=== PATIENT | male | born 1995 | race Caucasian/White ===

== ENCOUNTER 2019-07-20 09:38 | Inpatient (IN) | payer OTHER ==
[2019-07-20 09:56] VITALS: BMI 18.4
--- NOTE | 2019-07-20 10:17 | HP ---
COWS - Scale Resting Pulse: 0= [place] 80 or Below Sweatin= Chills/Flushing Restless Observation: 3= Extraneous Movement Pupil Size: 1= Pupils >than Normal Bone or Joint Aches: 2= Severe Diffuse Aches Runny Nose/ Eye Tearin= Runny Nose/Eyes GI Upset > 30mins: 2= Nausea/Diarrhea Tremor Observation: 2= Slight Tremor Visible Yawning Observation: 1= 1-2x During Session Anxiety or Irritability: 2=Irritable/Anxious Goose Flesh Skin: 0=Smooth Skin COWS Score: 16 CIWA Score - Admission Criteria OASAS Guidelines: Admission for Medically Managed Detox: Requires at least one of the followin. CIWA greater than 12 2. Seizures within the past 24 hours 3. Delirium tremens within the past 24 hours 4. Hallucinations within the past 24 hours 5. Acute intervention needed for co occurring medical disorder 6. Acute intervention needed for co occurring psychiatric disorder 7. Severe withdrawal that cannot be handled at a lower level of care (continued vomiting, continued diarrhea, abnormal vital signs) requiring intravenous medication and/or fluids 8. Admitting History and Physical - Admission Chief Complaint: i need help to stop using heroin,cocaine,k2 History Source: Patient Limitations to Obtaining History: No Limitations - Smoking History Smoking history: Never smoked - Alcohol/Substance Use Hx Alcohol Use: No History of Substance Use: reports: Cocaine, Heroin - Social History Occupation: unemployed History of Recent Travel: No Other Social History: homeless,unemployed, Admission ROS [facility] Chief Complaint: i need help to stop using heroin,cocaine,k2 Allergies/Adverse Reactions: Allergies Allergy/AdvReac Type Severity Reaction Status Date / Time No Known Allergies Allergy Verified 07/20/19 09:47 History of Present Illness: this 23 years old male with heroin,cocaine and k2 dependence,seeking detox,seen in [place] last night, poor hygiene,homeless last detox 2017 [facility] unemployed weight loss anxiety,depression no significant period of sobriety - Ebola screening Have you traveled outside of the country in the last 21 days: No Have you had contact with anyone from an Ebola affected area: No Do you have a fever: No - Review of Systems Constitutional: Chills, Loss of Appetite, Night Sweats, Weakness, Unintentional Wgt. Loss EENT: reports: Hearing Loss, Nose Congestion Respiratory: reports: No Symptoms reported Cardiac: reports: No Symptoms Reported GI: reports: Diarrhea, Nausea, Poor Appetite, Indigestion : reports: No Symptoms Reported Musculoskeletal: reports: Back Pain, Joint Pain, Muscle Pain Integumentary: reports: Dryness Neuro: reports: Headache, Tremors Endocrine: reports: No Symptoms Reported Hematology: reports: No Symptoms Reported Psychiatric: reports: No Sypmtoms Reported, Judgement Intact, Mood/Affect Appropiate, Orientated x3, Anxious, Depressed Other Systems: Reviewed and Negative Patient History - Patient Medical History Hx Anemia: No Hx Asthma: No Hx Chronic Obstructive Pulmonary Disease (COPD): No Hx Cancer: No Hx Cardiac Disorders: No Hx Congestive Heart Failure: No Hx Hypertension: No Hx Hypercholesterolemia: No Hx Pacemaker: No HX Cerebrovascular Accident: No Hx Seizures: No Hx Dementia: No Hx Diabetes: No Hx Gastrointestinal Disorders: No Hx Liver Disease: No Hx Genitourinary Disorders: No Hx Sexually Transmitted Disorders: No Hx Renal Disease (ESRD): No Hx Thyroid Disease: No Hx Human Immunodeficiency Virus (HIV): No (2019 negative) Hx Hepatitis C: Yes (not treated) Hx Depression: Yes (anxiety,no med) Hx Suicide Attempt: No Hx Bipolar Disorder: No Hx Schizophrenia: No Other Medical History: no suicidal,no homicidal - Patient Surgical History Past Surgical History: No - PPD History Previous Implant?: Yes Documented Results: Negative w/o proof Implanted On Prior [facility] Admission?: No PPD to be Administered?: Yes - Smoking Cessation Smoking history: Never smoked - Substance & Tx. History Hx Alcohol Use: No Hx Substance Use: Yes Substance Use Type: Cocaine, Heroin Hx Substance Use Treatment: Yes (2016 [facility]) - Substances abused K2/Spice Substance route: Smoking Frequency: Daily Amount used: $10 Age of first use: 13 Date of last use: 07/18/19 Cocaine Substance route: Injection Frequency: Daily Amount used: 3 bundles Age of first use: 20 Date of last use: 07/18/19 Heroin Substance route: Injection Frequency: Daily Amount used: 3 bundles Age of first use: 20 Date of last use: 07/18/19 Admission Physical Exam BHS - Vital Signs Vital Signs: Vital Signs - 24 hr 07/20/19 09:47 Temperature 99.0 F Pulse Rate 57 L Respiratory 18 Rate Blood Pressure 138/94 - Physical General Appearance: Yes: Moderate Distress, Tremorous, Irritable, Sweating, Anxious HEENTM: Yes: Normal ENT Inspection, JESSICA, Pharynx Normal Respiratory: Yes: Lungs Clear, Normal Breath Sounds, No Respiratory Distress Neck: Yes: Within Normal Limits, Supple, Trachea in good position Breast: Yes: Within Normal Limits Cardiology: Yes: Within Normal Limits, Regular Rhythm, Regular Rate, S1, S2 Abdominal: Yes: Flat, Soft, Pulsatile Mass Genitourinary: Yes: Within Normal Limits Back: Yes: Muscle Spasm Musculoskeletal: Yes: full range of Motion, Back pain, Muscle Pain Extremities: Yes: Tremors 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 Level of Care: Medically Managed Detox Regimen/Protocol: Methadone Inpatient Rehab Admission - Rehab Decision to Admit Inpatient rehab admission?: No
[2019-07-20] MEDS ORDERED: MENTHOL/PHENOL 1 EACH UD MM PRN (10:31)
[2019-07-20] MEDS ORDERED: MAGNESIUM CITRATE 300 ML BOTTLE PO PRN (10:31)
[2019-07-20] MEDS ORDERED: MAG HYDROX/AL HYDROX/SIMETH 30 ML UNIT-DOSE CUP PO PRN (10:31)
[2019-07-20] MEDS ORDERED: MAGNESIUM HYDROX 2400MG/30ML ORAL SUSPENSION 30 ML CUP PO PRN (10:31)
[2019-07-20] MEDS ORDERED: ACETAMINOPHEN 325 MG TABLET (FP) PO PRN ×2 (10:31)
[2019-07-20] MEDS ORDERED: BISMUTH SUBSALICYLATE 262 MG/15 ML BTL PO PRN (10:31)
[2019-07-20] MEDS ORDERED: IBUPROFEN 400 MG TABLET (FP) PO PRN (10:31)
[2019-07-20] MEDS ORDERED: PERMETHRIN 5% TOPICAL CREAM 60 GM TUBE TP ONE (10:43)
[2019-07-20] MEDS ORDERED: METHADONE HCL 10 MG TABLET (FOR DETOX USE ONLY) PO ONE (11:10)
[2019-07-20] MEDS: ONDANSETRON *ODT* 4 MG TABLET SL PRN ×2 (13:04→21:45)
[2019-07-20] MEDS: THIAMINE HCL 100 MG TABLET (FP) PO SCH (21:43)
[2019-07-20] MEDS: cloNIDine HCL 0.1 MG TABLET PO PRN (21:45)
[2019-07-20] MEDS: diazePAM 5 MG TABLET PO PRN (22:46)
[2019-07-20] MEDS: MELATONIN 5 MG TABLETS PO PRN (22:47)
[2019-07-21] MEDS: ONDANSETRON *ODT* 4 MG TABLET SL PRN ×2 (06:34→20:12)
[2019-07-21] MEDS: TRIMETHOBENZAMIDE HCL 200MG/2ML INJ IM PRN (09:29)
[2019-07-21] MEDS ORDERED: METHADONE (DETOX) 20 MG, METHADONE (DETOX) 5 MG PO ONE (10:00)
[2019-07-21] MEDS: PRENATAL VITAMINS W/ FOLIC ACID TABLET (FP) PO SCH (10:57)
[2019-07-21] MEDS ORDERED: METHADONE HCL 5 MG TABLET (FOR DETOX USE ONLY) ONE (10:58)
[2019-07-21] MEDS ORDERED: METHADONE HCL 10 MG TABLET (FOR DETOX USE ONLY) ONE (10:58)
--- NOTE | 2019-07-21 14:36 | PN ---
BHS COWS - Scale Resting Pulse: 1= [place] 81-100 Sweatin= Chills/Flushing Restless Observation: 1= Difficult to Sit Still Pupil Size: 1= Pupils >than Normal Bone or Joint Aches: 1= Mild Discomfort Runny Nose/ Eye Tearin= Nasal Congestion GI Upset > 30mins: 3= Vomiting/Diarrhea Tremor Observation of Outstretched Hands: 1= Tremor [place], Not Seen Yawning Observation: 1= 1-2x During Session Anxiety or Irritability: 2=Irritable/Anxious Goose Flesh Skin: 0=Smooth Skin COWS Score: 13 BHS Progress Note (SOAP) Subjective: pt in isolation due to lice- pt has had several treatments. Pt has been homeless and sleeps . 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 O: Vital Signs - 24 hr 07/20/19 07/21/19 07/21/19 21:37 00:30 03:30 Temperature 96.1 F L Pulse Rate 55 L Respiratory 18 16 18 Rate Blood Pressure 142/68 07/21/19 07/21/19 06:00 09:52 Temperature 98.6 F 98.2 F Pulse Rate 50 L 45 L Respiratory 18 16 Rate Blood Pressure 130/63 142/86 a/p: heroin,cocaine and k2 dependence: OUD: methadone detox protocol Lice: pt was allowed to cut hair/baltazar, treatment pt was given a contract to stay in room- but pt feeling bored. pt is german speaker and did not want any cambodian books
[2019-07-21] MEDS: diazePAM 5 MG TABLET PO PRN (18:22)
[2019-07-21] MEDS: MELATONIN 5 MG TABLETS PO PRN (22:15)
[2019-07-21] MEDS: cloNIDine HCL 0.1 MG TABLET PO PRN (22:15)
[2019-07-21] MEDS: METHOCARBAMOL 500 MG TABLET PO PRN (22:15)
[2019-07-21] MEDS: THIAMINE HCL 100 MG TABLET (FP) PO SCH (22:15)
[2019-07-22] MEDS: TRIMETHOBENZAMIDE HCL 200MG/2ML INJ IM PRN (09:36)
[2019-07-22] MEDS ORDERED: METHADONE HCL 10 MG TABLET (FOR DETOX USE ONLY) PO ONE (10:00)
[2019-07-22] MEDS: hydrOXYzine PAMOATE 25 MG CAPSULE (FP) PO PRN ×3 (10:32→22:17)
[2019-07-22] MEDS: PRENATAL VITAMINS W/ FOLIC ACID TABLET (FP) PO SCH (10:32)
--- NOTE | 2019-07-22 13:07 | PN ---
BHS COWS - Scale Resting Pulse: 0= [place] 80 or Below Sweatin= Chills/Flushing Restless Observation: 1= Difficult to Sit Still Pupil Size: 0= Normal to Room Light Bone or Joint Aches: 2= Severe Diffuse Aches Runny Nose/ Eye Tearin= Nasal Congestion GI Upset > 30mins: 2= Nausea/Diarrhea Tremor Observation of Outstretched Hands: 1= Tremor [place], Not Seen Yawning Observation: 1= 1-2x During Session Anxiety or Irritability: 2=Irritable/Anxious Goose Flesh Skin: 3=Piloerection COWS Score: 14 S Progress Note (SOAP) Subjective: nasal congestions sweats shakes nausea interrupted sleep agitation restless Objective: 07/22/19 13:07 Vital Signs Temperature 98.1 F 07/22/19 09:56 Pulse Rate 64 07/22/19 09:56 Respiratory Rate 18 07/22/19 09:56 Blood Pressure 139/99 07/22/19 09:56 O2 Sat by Pulse Oximetry (%) labs ordered aaox3 ambulating no acute distress Assessment: 07/22/19 13:10 withdrawals Plan: continue detox tigan IM prn increase fluids labs ordered
[2019-07-22] MEDS: ONDANSETRON *ODT* 4 MG TABLET SL PRN (17:43)
[2019-07-22] MEDS: diazePAM 5 MG TABLET PO PRN ×2 (17:43→22:17)
[2019-07-22] MEDS: cloNIDine HCL 0.1 MG TABLET PO PRN (17:43)
[2019-07-22] MEDS: THIAMINE HCL 100 MG TABLET (FP) PO SCH (22:17)
[2019-07-22] MEDS: MELATONIN 5 MG TABLETS PO PRN (22:17)
[2019-07-22] MEDS: METHOCARBAMOL 500 MG TABLET PO PRN (22:18)
[2019-07-23] MEDS ORDERED: METHADONE HCL 10 MG TABLET (FOR DETOX USE ONLY) ONE (09:47)
[2019-07-23] MEDS ORDERED: METHADONE HCL 5 MG TABLET (FOR DETOX USE ONLY) ONE (09:47)
[2019-07-23] MEDS ORDERED: METHADONE (DETOX) 10 MG, METHADONE (DETOX) 5 MG PO ONE (10:00)
[2019-07-23 10:17] LABS: PH,URINE 5.5 (5.0-8.0); URINE APPEARANCE CLEAR; URINE BILIRUBIN NEGATIVE (NEGATIVE); URINE COLOR YELLOW; URINE GLUCOSE (UA) NEGATIVE (NEGATIVE); URINE KETONE NEGATIVE (NEGATIVE); URINE LEUK ESTERASE NEGATIVE (NEGATIVE); URINE NITRITE NEGATIVE (NEGATIVE); URINE PROTEIN NEGATIVE (NEGATIVE); URINE UROBILINOGEN 0.2 mg/dL (0.2-1.0)
[2019-07-23 10:17] LABS: BASO % 1.5 % (0-2.0); EOS % 8.5 % (0-4.5); HEMATOCRIT 48.8 % (35.4-49); LYMPH % 39.2 % (8-40); MCH 27.8 pg (25.7-33.7); MCHC 32.7 g/dl (32.0-35.9); MEAN CELL VOLUME 85.2 fl (80-96); MEAN PLT VOLUME 10.4 fl (7.5-11.1); MONO % 8.6 % (3.8-10.2); NEUT % 42.2 % (42.8-82.8); PLATELET COUNT 379 K/MM3 (134-434); RBC 5.73 M/mm3 (4.00-5.60); RDW 14.4 % (11.9-15.9); WHITE BLOOD COUNT 9.4 K/mm3 (4.0-10.0)
[2019-07-23 10:21] LABS: ALBUMIN 4.3 g/dl (3.4-5.0); BILIRUBIN,TOTAL 0.6 mg/dL (0.2-1); BLOOD UREA NITROGEN 14.9 mg/dL (7-18); CALCIUM 9.9 mg/dL (8.5-10.1); TOT PROT 7.9 g/dl (6.4-8.2)
[2019-07-23] MEDS: diazePAM 5 MG TABLET PO PRN (10:36)
[2019-07-23] MEDS: PRENATAL VITAMINS W/ FOLIC ACID TABLET (FP) PO SCH (10:36)
--- NOTE | 2019-07-23 10:36 | PN ---
BHS COWS - Scale Resting Pulse: 1= [place] 81-100 Sweatin= Chills/Flushing Restless Observation: 1= Difficult to Sit Still Pupil Size: 0= Normal to Room Light Bone or Joint Aches: 1= Mild Discomfort Runny Nose/ Eye Tearin= Nasal Congestion GI Upset > 30mins: 0= None Tremor Observation of Outstretched Hands: 1= Tremor [place], Not Seen Yawning Observation: 1= 1-2x During Session Anxiety or Irritability: 2=Irritable/Anxious Goose Flesh Skin: 0=Smooth Skin COWS Score: 9 BHS Progress Note (SOAP) Subjective: agitation restless sweats interrupted sleep Objective: 07/23/19 10:36 Vital Signs Temperature 97.5 F L 07/23/19 09:27 Pulse Rate 84 07/23/19 09:27 Respiratory Rate 18 07/23/19 09:27 Blood Pressure 133/81 07/23/19 09:27 O2 Sat by Pulse Oximetry (%) Laboratory Tests 07/23/19 07/23/19 07:30 07:50 Sodium 139 Potassium 5.0 Chloride 101 Carbon Dioxide 30 Anion Gap 7 L BUN 14.9 Creatinine 1.0 Est GFR (CKD-EPI)AfAm 120.70 Est GFR (CKD-EPI)NonAf 104.14 Random Glucose 122 H Calcium 9.9 Total Bilirubin 0.6 AST 23 ALT 19 Alkaline Phosphatase 110 Total Protein 7.9 Albumin 4.3 Urine Color Yellow Urine Appearance Clear Urine pH 5.5 Ur Specific [place] 1.032 Urine Protein Negative Urine Glucose (UA) Negative Urine Ketones Negative Urine Blood Negative Urine Nitrite Negative Urine Bilirubin Negative Urine Urobilinogen 0.2 Ur Leukocyte Esterase Negative labs noted aaox3 ambulating no acute distress Assessment: 07/23/19 10:36 withdrawals sx Plan: continue detox increase fluids
--- NOTE | 2019-07-23 12:02 | EKG ---
Test Reason : Blood Pressure : / mmHG Vent. Rate : 050 BPM Atrial Rate : 050 BPM P-R Int : 096 ms QRS Dur : 088 ms QT Int : 428 ms P-R-T Axes : 004 072 065 degrees QTc Int : 390 ms SINUS BRADYCARDIA WITH SHORT NE OTHERWISE NORMAL ECG NO PREVIOUS ECGS AVAILABLE Confirmed by ABDIEL BARRETO MD ([id number]) on 07/23/2019 12:02:07 PM Referred By: Confirmed By:ABDIEL BARRETO MD
[2019-07-23] MEDS: TOLNAFTATE 1% CREAM 15 GM TUBE TP SCH ×2 (15:06→22:09)
[2019-07-23] MEDS: hydrOXYzine PAMOATE 25 MG CAPSULE (FP) PO PRN ×2 (18:46→23:46)
[2019-07-23] MEDS: MELATONIN 5 MG TABLETS PO PRN (22:10)
[2019-07-23] MEDS: THIAMINE HCL 100 MG TABLET (FP) PO SCH (22:10)
[2019-07-23] MEDS: METHOCARBAMOL 500 MG TABLET PO PRN (22:10)
[2019-07-24] MEDS ORDERED: METHADONE HCL 10 MG TABLET (FOR DETOX USE ONLY) PO ONE (10:00)
[2019-07-24] MEDS: PRENATAL VITAMINS W/ FOLIC ACID TABLET (FP) PO SCH (10:43)
[2019-07-24] MEDS: TOLNAFTATE 1% CREAM 15 GM TUBE TP SCH ×2 (10:43→21:47)
[2019-07-24] MEDS: hydrOXYzine PAMOATE 25 MG CAPSULE (FP) PO PRN ×2 (10:45→22:21)
--- NOTE | 2019-07-24 10:50 | PN ---
S CIWA - CIWA Score Nausea/Vomitin-No Nausea/No Vomiting Muscle Tremors: 2 Anxiety: 1-Mildly Anxious Agitation: 1-Slight > Activity Paroxysmal Sweats: No Perspiration Orientation: 0-Oriented Tacttile Disturbances: 0-None Auditory Disturbances: 0-None Visual Disturbances: 0-None Headache: 0-None Present CIWA-Ar Total Score: 4 BHS COWS - Scale Resting Pulse: 0= ID 80 or Below Sweatin= Chills/Flushing Restless Observation: 1= Difficult to Sit Still Pupil Size: 0= Normal to Room Light Bone or Joint Aches: 1= Mild Discomfort Runny Nose/ Eye Tearin= None GI Upset > 30mins: 0= None Tremor Observation of Outstretched Hands: 1= Tremor [place], Not Seen Yawning Observation: 0= None Anxiety or Irritability: 1=Feels Anxious/Irritable Goose Flesh Skin: 0=Smooth Skin COWS Score: 5 S Progress Note (SOAP) Subjective: sweats little anxiety feeling better Objective: 07/24/19 10:55 Vital Signs Temperature 97.9 F 07/24/19 09:31 Pulse Rate 50 L 07/24/19 09:31 Respiratory Rate 20 07/24/19 09:31 Blood Pressure 139/87 07/24/19 09:31 O2 Sat by Pulse Oximetry (%) Laboratory Tests 07/23/19 07/23/19 07/23/19 07:30 07:30 07:50 WBC 9.4 RBC 5.73 H Hgb 16.0 Hct 48.8 MCV 85.2 MCH 27.8 MCHC 32.7 RDW 14.4 Plt Count 379 MPV 10.4 Absolute Neuts (auto) 4.0 Neutrophils % 42.2 L Lymphocytes % 39.2 Monocytes % 8.6 Eosinophils % 8.5 H Basophils % 1.5 Nucleated RBC % 0 Sodium 139 Potassium 5.0 Chloride 101 Carbon Dioxide 30 Anion Gap 7 L BUN 14.9 Creatinine 1.0 Est GFR (CKD-EPI)AfAm 120.70 Est GFR (CKD-EPI)NonAf 104.14 Random Glucose 122 H Calcium 9.9 Total Bilirubin 0.6 AST 23 ALT 19 Alkaline Phosphatase 110 Total Protein 7.9 Albumin 4.3 Urine Color Yellow Urine Appearance Clear Urine pH 5.5 Ur Specific [place] 1.032 Urine Protein Negative Urine Glucose (UA) Negative Urine Ketones Negative Urine Blood Negative Urine Nitrite Negative Urine Bilirubin Negative Urine Urobilinogen 0.2 Ur Leukocyte Esterase Negative aaox3 ambulating no acute distress Assessment: 07/24/19 10:55 mild withdrawals Plan: continue detox increase fluids d/c in am
[2019-07-24] MEDS: ONDANSETRON *ODT* 4 MG TABLET SL PRN ×2 (12:18→18:43)
[2019-07-24] MEDS: THIAMINE HCL 100 MG TABLET (FP) PO SCH (21:47)
[2019-07-24] MEDS: MELATONIN 5 MG TABLETS PO PRN (22:21)
[2019-07-24] MEDS: TRIMETHOBENZAMIDE HCL 200MG/2ML INJ IM PRN (22:57)
[2019-07-25] MEDS: METHOCARBAMOL 500 MG TABLET PO PRN (00:43)
[2019-07-25] MEDS ORDERED: METHADONE HCL 5 MG TABLET (FOR DETOX USE ONLY) PO ONE (06:00)
[2019-07-25] MEDS: ONDANSETRON *ODT* 4 MG TABLET SL PRN (06:13)
--- NOTE | 2019-07-25 08:58 | DS ---
[facility] Detox Discharge Summary Admission Date: 07/20/19 Discharge Date: 07/25/19 - History Present History: Cocaine Dependence, Opioid Dependence - Physical Exam Results Vital Signs: Vital Signs Temperature 98.1 F 07/25/19 07:00 Pulse Rate 57 L 07/25/19 07:00 Respiratory Rate 18 07/25/19 07:00 Blood Pressure 128/84 07/25/19 07:00 O2 Sat by Pulse Oximetry (%) Pertinent Admission Physical Exam Findings: pt arrived in withdrawals Vital Signs Temperature 98.1 F 07/25/19 07:00 Pulse Rate 57 L 07/25/19 07:00 Respiratory Rate 18 07/25/19 07:00 Blood Pressure 128/84 07/25/19 07:00 O2 Sat by Pulse Oximetry (%) Laboratory Tests 07/23/19 07/23/19 07/23/19 07:30 07:30 07:30 WBC 9.4 RBC 5.73 H Hgb 16.0 Hct 48.8 MCV 85.2 MCH 27.8 MCHC 32.7 RDW 14.4 Plt Count 379 MPV 10.4 Absolute Neuts (auto) 4.0 Neutrophils % 42.2 L Lymphocytes % 39.2 Monocytes % 8.6 Eosinophils % 8.5 H Basophils % 1.5 Nucleated RBC % 0 Sodium 139 Potassium 5.0 Chloride 101 Carbon Dioxide 30 Anion Gap 7 L BUN 14.9 Creatinine 1.0 Est GFR (CKD-EPI)AfAm 120.70 Est GFR (CKD-EPI)NonAf 104.14 Random Glucose 122 H Calcium 9.9 Total Bilirubin 0.6 AST 23 ALT 19 Alkaline Phosphatase 110 Total Protein 7.9 Albumin 4.3 Urine Color Urine Appearance Urine pH Ur Specific [place] Urine Protein Urine Glucose (UA) Urine Ketones Urine Blood Urine Nitrite Urine Bilirubin Urine Urobilinogen Ur Leukocyte Esterase RPR Titer Nonreactive 07/23/19 07:50 WBC RBC Hgb Hct MCV MCH MCHC RDW Plt Count MPV Absolute Neuts (auto) Neutrophils % Lymphocytes % Monocytes % Eosinophils % Basophils % Nucleated RBC % Sodium Potassium Chloride Carbon Dioxide Anion Gap BUN Creatinine Est GFR (CKD-EPI)AfAm Est GFR (CKD-EPI)NonAf Random Glucose Calcium Total Bilirubin AST ALT Alkaline Phosphatase Total Protein Albumin Urine Color Yellow Urine Appearance Clear Urine pH 5.5 Ur Specific [place] 1.032 Urine Protein Negative Urine Glucose (UA) Negative Urine Ketones Negative Urine Blood Negative Urine Nitrite Negative Urine Bilirubin Negative Urine Urobilinogen 0.2 Ur Leukocyte Esterase Negative RPR Titer today pt is aaox3 ambulating no acute distress no s/s of withdrawals - Treatment Hospital Course: Detox Protocol Followed, Detoxed Safely, Responded well, Discharged Condition Good, Rehab Referral Accepted Patient has Accepted a Rehab Referral to: pt referred to inpatient rehab; [facility] - Medication Discharge Medications: Ambulatory Orders NK [No Known Home Medication] 07/20/19 - Diagnosis (1) Anxiety and depression Current Visit: Yes Status: Acute (2) Cocaine dependence Current Visit: Yes Status: Chronic Qualifiers: Substance use status: uncomplicated Qualified Code(s): F14.20 - Cocaine dependence, uncomplicated (3) IVDU (intravenous drug user) Current Visit: Yes Status: Acute (4) Opioid dependence with withdrawal Current Visit: Yes Status: Chronic (5) Poor hygiene Current Visit: Yes Status: Acute (6) Weight loss Current Visit: Yes Status: Acute - AMA Did Patient Leave Against Medical Advice: No
[2019-07-25 09:23] VITALS: BP 120/79; PULSE 71; TEMP 98.2
[2019-07-25] MEDS: PRENATAL VITAMINS W/ FOLIC ACID TABLET (FP) PO SCH (10:42)
[2019-07-25] MEDS: TOLNAFTATE 1% CREAM 15 GM TUBE TP SCH (10:42)
[2019-07-25] MEDS: hydrOXYzine PAMOATE 25 MG CAPSULE (FP) PO PRN (10:43)
== END 2019-07-25 12:06 | disposition other institution (70) | DRG 773 ==
LOC: YASAS 09:38 → Y6N 10:11
PROVIDERS: ADMIT Allergy & Immunology; ATTEND Allergy & Immunology
PROC: HZ2ZZZZ Detoxification Services for Substance Abuse Treatment (ICD-10-PCS; principal; 2019-07-20)
DX: F11.23 Opioid dependence with withdrawal (principal); F14.20 Cocaine dependence, uncomplicated; F19.20 Other psychoactive substance dependence, uncomplicated; F41.8 Other specified anxiety disorders; F32.9 Major depressive disorder, single episode, unspecified; B18.2 Chronic viral hepatitis C; R46.0 Very low level of personal hygiene; B85.0 Pediculosis due to Pediculus humanus capitis; R63.4 Abnormal weight loss; Z68.1 Body mass index [BMI] 19.9 or less, adult; Z59.0 Homelessness
CPT/HCPCS: 36415; 80053; 81003; 85025; 86593; 93005; 93010; J0735; Q0162

== ENCOUNTER 2019-07-25 12:20 | Inpatient (IN) | payer OTHER ==
--- NOTE | 2019-07-25 10:47 | HP ---
[facility] Rehab Assess/Revision - Admission History Admitted to Rehab from: [facility] - Findings Detox History & Physical reviewed: Yes Concur with findings: Yes Inpatient Rehab Admission - Rehab Decision to Admit Inpatient rehab admission?: Yes - Initial Determination Are CD services needed?: Yes Free of communicable disease: Yes Not in need of hospitalization: Yes - Rehab Admission Criteria Previous failed treatment: Yes Poor recovery environment: Yes Comorbidities: Yes Lacks judgement: Yes Patient is meeting Inpatient Rehab admission criteria:: Yes
[~2019-07-25 12:20] MED LIST: ACETAMINOPHEN 325 MG TABLET (FP) PO PRN; IBUPROFEN 400 MG TABLET (FP) PO PRN; LOPERAMIDE HCL 2 MG CAPSULE PO PRN; MAGNESIUM CITRATE 300 ML BOTTLE PO PRN; MAGNESIUM HYDROX 2400MG/30ML ORAL SUSPENSION 30 ML CUP PO PRN; MENTHOL/PHENOL 1 EACH UD MM PRN; P-EPHED 60MG/TRIPROLIDI 2.5MG TABLET PO PRN; guaiFENesin 200 MG/10 ML 10 ML UNIT-DOSE CUPS PO PRN
[2019-07-25] MEDS: MAG HYDROX/AL HYDROX/SIMETH 30 ML UNIT-DOSE CUP PO PRN (12:44)
--- NOTE | 2019-07-25 15:28 | PN ---
BHS Progress Note Note: 23 y/o m pt with h/o opioid dep, chronic alcoholism and cocaine dep. admitted to [facility] after completing detox. Pt at present is stable in nad . Labs wnl except for random glucose 122. Plan rehab bgm x 2 days
[2019-07-25] MEDS: MELATONIN 5 MG TABLETS PO PRN (21:17)
[2019-07-25] MEDS: THIAMINE HCL 100 MG TABLET (FP) PO SCH (21:17)
[2019-07-25] MEDS: hydrOXYzine PAMOATE 50 MG CAPSULE (FP) PO PRN (21:18)
[2019-07-26] MEDS: hydrOXYzine PAMOATE 50 MG CAPSULE (FP) PO PRN ×2 (09:51→18:47)
[2019-07-26] MEDS: PRENATAL VITAMINS W/ FOLIC ACID TABLET (FP) PO SCH (09:51)
[2019-07-26] MEDS: NICOTINE 21 MG/24 HOURS TOPICAL PATCH TD SCH (09:52)
--- NOTE | 2019-07-26 10:55 | PN ---
BHS Progress Note Note: Pt here for f/u. D/w pt re MAT- methadone/suboxone treatment. Pt will discuss with counselor re MAT Pt wants regular diet and ensure
[2019-07-26] MEDS: ONDANSETRON *ODT* 4 MG TABLET SL PRN ×2 (13:04→18:45)
[2019-07-26] MEDS ORDERED: TRIMETHOBENZAMIDE HCL 200MG/2ML INJ IM PRN (14:25)
[2019-07-26] MEDS: THIAMINE HCL 100 MG TABLET (FP) PO SCH (22:38)
[2019-07-27] MEDS: hydrOXYzine PAMOATE 50 MG CAPSULE (FP) PO PRN (08:22)
[2019-07-27] MEDS: MAG HYDROX/AL HYDROX/SIMETH 30 ML UNIT-DOSE CUP PO PRN (08:22)
--- NOTE | 2019-07-27 09:38 | PN ---
S Progress Note Note: Patient seen for c/o chills, body aches, mild nausea-no vomiting this am and poor sleep. Vital Signs Temperature 97.5 F L 07/27/19 06:41 Pulse Rate 69 07/27/19 06:41 Respiratory Rate 16 07/27/19 06:41 Blood Pressure 148/100 07/27/19 06:41 O2 Sat by Pulse Oximetry (%) Laboratory Tests 07/26/19 07/27/19 06:46 06:20 POC Glucometer 82 88 PE: alert and oriented x 3 skin warm and dry +perrla, eoms intact bl lips dry, intact gi nt, nd ext full rom, amb ad lilly no tremors A/P nausea body aches insomnia continue zofran prn flexeril for body aches belsomra prn for insomnia monitor clinically patient agreed for connection to methadone program-to be arranged by counselor
[2019-07-27] MEDS: PRENATAL VITAMINS W/ FOLIC ACID TABLET (FP) PO SCH (09:46)
[2019-07-27] MEDS: NICOTINE 21 MG/24 HOURS TOPICAL PATCH TD SCH (09:46)
[2019-07-27] MEDS: NICOTINE POLACRILEX 4 MG GUM BUC PRN (09:47)
[2019-07-27] MEDS: ONDANSETRON *ODT* 4 MG TABLET SL PRN (12:22)
[2019-07-27] MEDS: CYCLOBENZAPRINE HCL 10 MG TABLET (FP) PO SCH ×2 (14:47→21:28)
[2019-07-27] MEDS: cloNIDine HCL 0.1 MG TABLET PO PRN ×2 (14:47→18:40)
[2019-07-27] MEDS: THIAMINE HCL 100 MG TABLET (FP) PO SCH (21:28)
[2019-07-27] MEDS: SUVOREXANT 10 MG TABLET PO PRN (21:29)
[2019-07-27] MEDS: MELATONIN 5 MG TABLETS PO PRN (21:30)
[2019-07-28] MEDS: CYCLOBENZAPRINE HCL 10 MG TABLET (FP) PO SCH ×3 (06:07→21:11)
[2019-07-28] MEDS: NICOTINE 21 MG/24 HOURS TOPICAL PATCH TD SCH (09:55)
[2019-07-28] MEDS: PRENATAL VITAMINS W/ FOLIC ACID TABLET (FP) PO SCH (09:55)
[2019-07-28] MEDS: cloNIDine HCL 0.1 MG TABLET PO PRN (09:55)
[2019-07-28] MEDS: MELATONIN 5 MG TABLETS PO PRN (21:12)
[2019-07-28] MEDS: THIAMINE HCL 100 MG TABLET (FP) PO SCH (21:12)
[2019-07-28] MEDS: NICOTINE POLACRILEX 4 MG GUM BUC PRN (21:22)
[2019-07-29] MEDS: CYCLOBENZAPRINE HCL 10 MG TABLET (FP) PO SCH ×3 (06:17→21:09)
[2019-07-29] MEDS: NICOTINE 21 MG/24 HOURS TOPICAL PATCH TD SCH (09:46)
[2019-07-29] MEDS: PRENATAL VITAMINS W/ FOLIC ACID TABLET (FP) PO SCH (09:47)
[2019-07-29] MEDS: NICOTINE POLACRILEX 4 MG GUM BUC PRN ×2 (09:47→21:08)
[2019-07-29] MEDS: cloNIDine HCL 0.1 MG TABLET PO PRN (09:47)
[2019-07-29] MEDS: THIAMINE HCL 100 MG TABLET (FP) PO SCH (21:06)
[2019-07-29] MEDS: SUVOREXANT 10 MG TABLET PO PRN (21:08)
[2019-07-29] MEDS: MELATONIN 5 MG TABLETS PO PRN (21:09)
[2019-07-30] MEDS: CYCLOBENZAPRINE HCL 10 MG TABLET (FP) PO SCH ×3 (06:24→21:42)
[2019-07-30] MEDS: NICOTINE POLACRILEX 4 MG GUM BUC PRN ×2 (07:41→21:43)
[2019-07-30] MEDS: cloNIDine HCL 0.1 MG TABLET PO PRN (09:30)
[2019-07-30] MEDS: PRENATAL VITAMINS W/ FOLIC ACID TABLET (FP) PO SCH (09:30)
[2019-07-30] MEDS: NICOTINE 21 MG/24 HOURS TOPICAL PATCH TD SCH (09:30)
[2019-07-30] MEDS: MELATONIN 5 MG TABLETS PO PRN (21:42)
[2019-07-30] MEDS: THIAMINE HCL 100 MG TABLET (FP) PO SCH (21:42)
[2019-07-30] MEDS ORDERED: SUVOREXANT 10 MG TABLET PO PRN (22:00)
[2019-07-31] MEDS: CYCLOBENZAPRINE HCL 10 MG TABLET (FP) PO SCH ×3 (06:29→21:27)
[2019-07-31] MEDS: PRENATAL VITAMINS W/ FOLIC ACID TABLET (FP) PO SCH (10:02)
[2019-07-31] MEDS: NICOTINE 21 MG/24 HOURS TOPICAL PATCH TD SCH (10:03)
[2019-07-31] MEDS: MELATONIN 5 MG TABLETS PO PRN (21:28)
[2019-07-31] MEDS: THIAMINE HCL 100 MG TABLET (FP) PO SCH (21:28)
[2019-07-31] MEDS: NICOTINE POLACRILEX 4 MG GUM BUC PRN (21:28)
[2019-08-01] MEDS: ONDANSETRON *ODT* 4 MG TABLET SL PRN (05:51)
[2019-08-01] MEDS ORDERED: TRIMETHOBENZAMIDE HCL 200MG/2ML INJ IM PRN (07:19)
[2019-08-01] MEDS: CYCLOBENZAPRINE HCL 10 MG TABLET (FP) PO SCH ×3 (08:03→21:44)
[2019-08-01] MEDS: PRENATAL VITAMINS W/ FOLIC ACID TABLET (FP) PO SCH (10:39)
[2019-08-01] MEDS: NICOTINE 21 MG/24 HOURS TOPICAL PATCH TD SCH (10:40)
[2019-08-01] MEDS: cloNIDine HCL 0.1 MG TABLET PO PRN (10:40)
[2019-08-01] MEDS ORDERED: PANTOPRAZOLE 40 MG TABLET (FP) PO ONE (15:24)
--- NOTE | 2019-08-01 15:29 | PN ---
BHS Progress Note (SOAP) Subjective: Pt c/o nausea and vomiting. Was treated with tigan. But nausea continues, although lessened. No further vomiting. Objective: 08/01/19 15:27 Laboratory Last Values POC Glucometer 88 UNITS (80-120) 07/27/19 06:20 Vital Signs Period Temp Pulse Resp BP Sys/Crawford Pulse Ox Last 24 Hr 98.1 F 75 18-18 148/101 P/E: General: no apparent distress HEENTM: normocephalic Neck: supple Lungs: clear Heart: s1, s2 ABD: soft, non-tender, non-distended. Neuro: CN 2-12 intact. Assessment: nausea 08/01/19 15:28 Plan: Started on protonix, will continue to monitor. Seen by nutrition, patient states he will follow nutrition recommendations.
--- NOTE | 2019-08-01 15:36 | PN ---
BHS Progress Note (SOAP) Subjective: patient with rash on plantar aspect of feet. states he can wash it off, but it returns Objective: P/E; General: no apparent distress Neuro: Cn 20-12 intact MSK: full weight bearing, full ROM> SKIN: dry, rough, scaling on plantar aspects of feet. 08/01/19 15:33 Assessment: tinea pedis 08/01/19 15:36 Plan: tinactin cream ordered.
[2019-08-01] MEDS: THIAMINE HCL 100 MG TABLET (FP) PO SCH (21:44)
[2019-08-01] MEDS: MELATONIN 5 MG TABLETS PO PRN (21:45)
[2019-08-01] MEDS: TOLNAFTATE 1% CREAM 15 GM TUBE TP SCH (21:45)
[2019-08-01] MEDS: NICOTINE POLACRILEX 4 MG GUM BUC PRN (21:46)
[2019-08-02] MEDS: SUVOREXANT 10 MG TABLET PO PRN ×2 (01:36→21:20)
[2019-08-02] MEDS: CYCLOBENZAPRINE HCL 10 MG TABLET (FP) PO SCH ×3 (06:19→21:20)
[2019-08-02] MEDS: PRENATAL VITAMINS W/ FOLIC ACID TABLET (FP) PO SCH (10:16)
[2019-08-02] MEDS: PANTOPRAZOLE 40 MG TABLET (FP) PO SCH (10:17)
[2019-08-02] MEDS: NICOTINE POLACRILEX 4 MG GUM BUC PRN (10:17)
[2019-08-02] MEDS: NICOTINE 21 MG/24 HOURS TOPICAL PATCH TD SCH (10:19)
[2019-08-02] MEDS: TOLNAFTATE 1% CREAM 15 GM TUBE TP SCH ×2 (10:19→21:58)
--- NOTE | 2019-08-02 15:25 | CONSULT ---
[facility] Psychiatric Consult - Data Date of interview: 08/02/19 Admission source: [facility] Identifying data: Patient is a 23 year old single [place]ian male, without children, unemployed, homeless, and is not currently receiving financial assistance. This is patient's first admission to rehab at [facility]. Patient admitted to for opiate and cocaine dependence. Substance Abuse History: Smoking Cessation. Smoking history: Never smoked. - Substance & Tx. History. Hx Alcohol Use: No. Hx Substance Use: Yes. Substance Use Type: Cocaine, Heroin. Hx Substance Use Treatment: Yes (2016 [facility]). - Substances abused. K2/Spice. Substance route: Smoking. Frequency: Daily. Amount used: $10. Age of first use: 13. Date of last use: 07/18/19. Cocaine. Substance route: Injection. Frequency: Daily. Amount used: 3 bundles. Age of first use: 20. Date of last use: 07/18/19. Heroin. Substance route: Injection. Frequency: Daily. Amount used: 3 bundles. Age of first use: 20. Date of last use: 07/18/19 Medical History: Hep C Psychiatric History: Patient denies history of psychiatric hospitalization and suicide attempts. Mr. Encarnacion reports seeing a psychiatrist while living in [place]. States that his first psychiatric contact was at 13-14 years of age due to history of restlessness and difficulty focusing. He was diagnosed with ADHD and prescribed psychotropic medications but never took the medications. After seeing the psychiatrist numerous times he discontinued treament and has not had psychiatric treatment since. At present patient reports stable mood. Reports sleeping well last night after receiving belsomra 10mg HS. Physical/Sexual Abuse/Trauma History: denies. Mental Status Exam - Mental Status Exam Alert and Oriented to: Time, Place, Person Cognitive Function: Good Patient Appearance: Well Groomed Mood: Euthymic Affect: Mood Congruent Patient Behavior: Appropriate, Cooperative Speech Pattern: Clear, Appropriate Voice Loudness: Normal Thought Process: Goal Oriented Thought Disorder: Not Present Hallucinations: Denies Suicidal Ideation: Denies Homicidal Ideation: Denies Insight/Judgement: Poor Sleep: Fair Appetite: Fair Muscle strength/Tone: Normal Gait/Station: Normal Psychiatric Findings - Problem List ([place] 1, 2,3) (1) Opiate dependence Current Visit: Yes Status: Acute (2) Cocaine dependence Current Visit: Yes Status: Acute (3) Substance-induced sleep disorder Current Visit: Yes Status: Acute (4) ADHD Current Visit: No Status: Chronic - Initial Treatment Plan Initial Treatment Plan: Psychoeducation provided. Rehab in progress. Will continue Belsomra 10mg + Melatonin 5mg. Benefits and side effects discussed. Verbal consent given.
[2019-08-02] MEDS ORDERED: PT OWN MED DRAWER 7, Y5N ONE (20:16)
[2019-08-02] MEDS: THIAMINE HCL 100 MG TABLET (FP) PO SCH (21:20)
[2019-08-02] MEDS: MELATONIN 5 MG TABLETS PO PRN (21:20)
[2019-08-03] MEDS: CYCLOBENZAPRINE HCL 10 MG TABLET (FP) PO SCH ×3 (05:46→21:32)
[2019-08-03] MEDS: PANTOPRAZOLE 40 MG TABLET (FP) PO SCH (10:07)
[2019-08-03] MEDS: NICOTINE 21 MG/24 HOURS TOPICAL PATCH TD SCH (10:07)
[2019-08-03] MEDS: PRENATAL VITAMINS W/ FOLIC ACID TABLET (FP) PO SCH (10:07)
[2019-08-03] MEDS: NICOTINE POLACRILEX 4 MG GUM BUC PRN (10:08)
[2019-08-03] MEDS: TOLNAFTATE 1% CREAM 15 GM TUBE TP SCH ×2 (10:08→21:33)
[2019-08-03] MEDS: MELATONIN 5 MG TABLETS PO PRN (21:32)
[2019-08-03] MEDS: THIAMINE HCL 100 MG TABLET (FP) PO SCH (21:32)
[2019-08-04] MEDS: CYCLOBENZAPRINE HCL 10 MG TABLET (FP) PO SCH ×3 (06:35→21:06)
[2019-08-04] MEDS: PANTOPRAZOLE 40 MG TABLET (FP) PO SCH (09:55)
[2019-08-04] MEDS: PRENATAL VITAMINS W/ FOLIC ACID TABLET (FP) PO SCH (09:55)
[2019-08-04] MEDS: TOLNAFTATE 1% CREAM 15 GM TUBE TP SCH ×2 (09:56→21:07)
[2019-08-04] MEDS: NICOTINE 21 MG/24 HOURS TOPICAL PATCH TD SCH (09:56)
[2019-08-04] MEDS: NICOTINE POLACRILEX 4 MG GUM BUC PRN (16:42)
[2019-08-04] MEDS: MELATONIN 5 MG TABLETS PO PRN (21:06)
[2019-08-04] MEDS: THIAMINE HCL 100 MG TABLET (FP) PO SCH (21:06)
[2019-08-04] MEDS: SUVOREXANT 10 MG TABLET PO PRN (21:08)
[2019-08-05] MEDS: CYCLOBENZAPRINE HCL 10 MG TABLET (FP) PO SCH ×3 (06:46→21:26)
[2019-08-05] MEDS: PRENATAL VITAMINS W/ FOLIC ACID TABLET (FP) PO SCH (09:46)
[2019-08-05] MEDS: PANTOPRAZOLE 40 MG TABLET (FP) PO SCH (09:46)
[2019-08-05] MEDS: TOLNAFTATE 1% CREAM 15 GM TUBE TP SCH ×2 (09:47→21:35)
[2019-08-05] MEDS: NICOTINE 21 MG/24 HOURS TOPICAL PATCH TD SCH (09:47)
[2019-08-05] MEDS: MELATONIN 5 MG TABLETS PO PRN (21:26)
[2019-08-05] MEDS: THIAMINE HCL 100 MG TABLET (FP) PO SCH (21:26)
[2019-08-05] MEDS: SUVOREXANT 10 MG TABLET PO PRN (21:27)
[2019-08-06] MEDS: CYCLOBENZAPRINE HCL 10 MG TABLET (FP) PO SCH ×3 (06:17→22:14)
[2019-08-06] MEDS: PANTOPRAZOLE 40 MG TABLET (FP) PO SCH (09:37)
[2019-08-06] MEDS: PRENATAL VITAMINS W/ FOLIC ACID TABLET (FP) PO SCH (09:37)
[2019-08-06] MEDS: NICOTINE 21 MG/24 HOURS TOPICAL PATCH TD SCH (09:38)
[2019-08-06] MEDS: TOLNAFTATE 1% CREAM 15 GM TUBE TP SCH ×2 (09:38→22:15)
[2019-08-06] MEDS: THIAMINE HCL 100 MG TABLET (FP) PO SCH (22:14)
[2019-08-06] MEDS: MELATONIN 5 MG TABLETS PO PRN (22:16)
[2019-08-07] MEDS: CYCLOBENZAPRINE HCL 10 MG TABLET (FP) PO SCH ×3 (06:26→21:01)
[2019-08-07] MEDS: PRENATAL VITAMINS W/ FOLIC ACID TABLET (FP) PO SCH (09:44)
[2019-08-07] MEDS: NICOTINE 21 MG/24 HOURS TOPICAL PATCH TD SCH (09:44)
[2019-08-07] MEDS: PANTOPRAZOLE 40 MG TABLET (FP) PO SCH (09:44)
[2019-08-07] MEDS: TOLNAFTATE 1% CREAM 15 GM TUBE TP SCH ×2 (09:45→21:02)
[2019-08-07] MEDS ORDERED: PT OWN MED DRAWER 7, Y5N ONE (10:59)
[2019-08-07] MEDS: MELATONIN 5 MG TABLETS PO PRN (21:01)
[2019-08-07] MEDS: THIAMINE HCL 100 MG TABLET (FP) PO SCH (21:01)
[2019-08-08] MEDS: CYCLOBENZAPRINE HCL 10 MG TABLET (FP) PO SCH ×3 (06:32→21:46)
[2019-08-08] MEDS: TOLNAFTATE 1% CREAM 15 GM TUBE TP SCH ×2 (09:44→21:46)
[2019-08-08] MEDS: PANTOPRAZOLE 40 MG TABLET (FP) PO SCH (09:44)
[2019-08-08] MEDS: PRENATAL VITAMINS W/ FOLIC ACID TABLET (FP) PO SCH (09:44)
[2019-08-08] MEDS: NICOTINE 21 MG/24 HOURS TOPICAL PATCH TD SCH (09:45)
--- NOTE | 2019-08-08 12:00 | PN ---
BHS COWS - Scale Resting Pulse: 1= [place] 81-100 Sweatin= Chills/Flushing Restless Observation: 0= Sits Still Pupil Size: 0= Normal to Room Light Bone or Joint Aches: 1= Mild Discomfort Runny Nose/ Eye Tearin= Runny Nose/Eyes GI Upset > 30mins: 2= Nausea/Diarrhea Tremor Observation of Outstretched Hands: 0= None Yawning Observation: 0= None Anxiety or Irritability: 1=Feels Anxious/Irritable Goose Flesh Skin: 0=Smooth Skin COWS Score: 8 BHS Progress Note (SOAP) Subjective: patient using heroin and cocaine in the street. Was detoxed with methadone. Is now requesting suboxone. States he is still feeling the effects of withdrawal and some cravings. patient reports that he was on suboxone several years ago but left the program. There is no documentation in [facility] for [place] or the [facility] area ([place], [place], [facility], [place]). Objective: General: No apparent distress HEENTM: normocephalic Lungs: clear Heart: s1 s2 ABD:+BS Neuro: CN 2-12 intact MSK: full weight bearing, steady gait. 08/08/19 12:01 Assessment: Heroin use, MAT with suboxone 08/08/19 12:02 Plan: Will start on 2mg of suboxone. Patient will go to [facility] to continue suboxone treatment.
[2019-08-08] MEDS: BUPRENORPHINE/NALOXONE 2 MG/0.5 MG FILM PACKET SL SCH (19:19)
[2019-08-08] MEDS: MELATONIN 5 MG TABLETS PO PRN (21:46)
[2019-08-08] MEDS: THIAMINE HCL 100 MG TABLET (FP) PO SCH (21:46)
[2019-08-09] MEDS: CYCLOBENZAPRINE HCL 10 MG TABLET (FP) PO SCH ×3 (06:24→21:07)
[2019-08-09] MEDS: PANTOPRAZOLE 40 MG TABLET (FP) PO SCH (09:43)
[2019-08-09] MEDS: PRENATAL VITAMINS W/ FOLIC ACID TABLET (FP) PO SCH (09:43)
[2019-08-09] MEDS: BUPRENORPHINE/NALOXONE 2 MG/0.5 MG FILM PACKET SL SCH ×2 (09:43→18:29)
[2019-08-09] MEDS: TOLNAFTATE 1% CREAM 15 GM TUBE TP SCH ×2 (09:44→21:08)
[2019-08-09] MEDS: NICOTINE 21 MG/24 HOURS TOPICAL PATCH TD SCH (09:44)
[2019-08-09] MEDS: THIAMINE HCL 100 MG TABLET (FP) PO SCH (21:07)
[2019-08-09] MEDS: MELATONIN 5 MG TABLETS PO PRN (21:07)
[2019-08-10] MEDS: CYCLOBENZAPRINE HCL 10 MG TABLET (FP) PO SCH ×3 (06:39→21:19)
[2019-08-10] MEDS: PANTOPRAZOLE 40 MG TABLET (FP) PO SCH (09:45)
[2019-08-10] MEDS: PRENATAL VITAMINS W/ FOLIC ACID TABLET (FP) PO SCH (09:45)
[2019-08-10] MEDS: BUPRENORPHINE/NALOXONE 2 MG/0.5 MG FILM PACKET SL SCH ×2 (09:46→17:58)
[2019-08-10] MEDS: NICOTINE 21 MG/24 HOURS TOPICAL PATCH TD SCH (09:46)
[2019-08-10] MEDS: TOLNAFTATE 1% CREAM 15 GM TUBE TP SCH ×2 (09:47→21:20)
[2019-08-10] MEDS: THIAMINE HCL 100 MG TABLET (FP) PO SCH (21:19)
[2019-08-11] MEDS: CYCLOBENZAPRINE HCL 10 MG TABLET (FP) PO SCH ×3 (06:04→21:47)
[2019-08-11] MEDS: BUPRENORPHINE/NALOXONE 2 MG/0.5 MG FILM PACKET SL SCH ×2 (09:48→18:01)
[2019-08-11] MEDS: TOLNAFTATE 1% CREAM 15 GM TUBE TP SCH ×2 (09:48→21:48)
[2019-08-11] MEDS: NICOTINE 21 MG/24 HOURS TOPICAL PATCH TD SCH (09:48)
[2019-08-11] MEDS: PANTOPRAZOLE 40 MG TABLET (FP) PO SCH (09:48)
[2019-08-11] MEDS: PRENATAL VITAMINS W/ FOLIC ACID TABLET (FP) PO SCH (09:48)
[2019-08-11] MEDS ORDERED: PT OWN MED DRAWER 7, Y5N ONE (18:57)
[2019-08-11] MEDS: MELATONIN 5 MG TABLETS PO PRN (21:47)
[2019-08-11] MEDS: THIAMINE HCL 100 MG TABLET (FP) PO SCH (21:48)
[2019-08-12] MEDS: CYCLOBENZAPRINE HCL 10 MG TABLET (FP) PO SCH ×3 (06:26→21:52)
[2019-08-12] MEDS: PANTOPRAZOLE 40 MG TABLET (FP) PO SCH (09:32)
[2019-08-12] MEDS: NICOTINE 21 MG/24 HOURS TOPICAL PATCH TD SCH (09:32)
[2019-08-12] MEDS: PRENATAL VITAMINS W/ FOLIC ACID TABLET (FP) PO SCH (09:32)
[2019-08-12] MEDS: BUPRENORPHINE/NALOXONE 2 MG/0.5 MG FILM PACKET SL SCH ×2 (09:32→18:06)
[2019-08-12] MEDS: NICOTINE POLACRILEX 4 MG GUM BUC PRN (09:33)
[2019-08-12] MEDS: TOLNAFTATE 1% CREAM 15 GM TUBE TP SCH ×2 (10:20→21:52)
[2019-08-12] MEDS: THIAMINE HCL 100 MG TABLET (FP) PO SCH (21:52)
[2019-08-12] MEDS: MELATONIN 5 MG TABLETS PO PRN (21:53)
[2019-08-13] MEDS: CYCLOBENZAPRINE HCL 10 MG TABLET (FP) PO SCH (06:12)
[2019-08-13 06:56] VITALS: BP 120/73; PULSE 83; TEMP 97.8
--- NOTE | 2019-08-13 09:28 | DS ---
[facility] Rehab Discharge Summary - [facility] Rehab Discharge Summary Admission Date: 07/25/19 Discharge Date: 08/13/19 - History Present History: Cocaine dependence, Opioid dependence Pertinent Past History: this 23 years old male with heroin,cocaine and k2 dependence,seeking detox,seen in [place] last night, poor hygiene,homeless last detox 2016 [place] unemployed weight loss anxiety,depression no significant period of sobriety - Discharge Physical Exam Vital Signs: Vital Signs Temperature 97.8 F 08/13/19 06:55 Pulse Rate 83 08/13/19 06:55 Respiratory Rate 18 08/13/19 06:55 Blood Pressure 120/73 08/13/19 06:55 O2 Sat by Pulse Oximetry (%) Pertinent Admission Physical Exam Findings: General Appearance: Yes: Moderate Distress, Tremorous, Irritable, Sweating, Anxious HEENTM: Yes: Normal ENT Inspection, JESSICA, Pharynx Normal Respiratory: Yes: Lungs Clear, Normal Breath Sounds, No Respiratory Distress Neck: Yes: Within Normal Limits, Supple, Trachea in good position Breast: Yes: Within Normal Limits Cardiology: Yes: Within Normal Limits, Regular Rhythm, Regular Rate, S1, S2 Abdominal: Yes: Flat, Soft, Pulsatile Mass Genitourinary: Yes: Within Normal Limits Back: Yes: Muscle Spasm Musculoskeletal: Yes: full range of Motion, Back pain, Muscle Pain Extremities: Yes: Tremors Neurological: Yes: planer setter II-XII NML intact, Fully Oriented, Alert, Motor Strength 5/5 Integumentary: Yes: Dry, [place] Lymphatic: Yes: Within Normal Limits - Treatment Discharge Condition: Outpatient referral accepted (medically stable for discharge.Patient will go to [facility]) Hospital Course: Attended groups, had 1:1 with provider, was seen by psychiatric service; was adherent to his medication regimen and treatment plan. Started no suboxone. - Medication Discharge Medications: Ambulatory Orders NK [No Known Home Medication] 07/20/19 - Medication-Assisted Treatment (MAT) Medication Prescribed: Buprenorphine (Will go to [facility]) - Discharge Instructions Diet, activity, other medical instructions: Diet: as tolerated Activity: as tolerated Other medical instructions: Please follow up with aftercare. - Diagnosis (1) Cocaine dependence Status: Chronic - Follow-up Referral Minutes to complete discharge: 20 - AMA Did Patient Leave Against Medical Advice: No
[2019-08-13] MEDS: PRENATAL VITAMINS W/ FOLIC ACID TABLET (FP) PO SCH (09:33)
[2019-08-13] MEDS: BUPRENORPHINE/NALOXONE 2 MG/0.5 MG FILM PACKET SL SCH (09:33)
[2019-08-13] MEDS: PANTOPRAZOLE 40 MG TABLET (FP) PO SCH (09:34)
[2019-08-13] MEDS: TOLNAFTATE 1% CREAM 15 GM TUBE TP SCH (09:35)
[2019-08-13] MEDS: NICOTINE 21 MG/24 HOURS TOPICAL PATCH TD SCH (09:35)
== END 2019-08-13 10:00 | disposition home or self-care (01) | DRG 772 ==
LOC: YASAS 12:20 → Y3W 12:27
PROVIDERS: ADMIT Neuromusculoskeletal Medicine & OMM; ATTEND Neuromusculoskeletal Medicine & OMM
PROC: HZ42ZZZ Group Counseling for Substance Abuse Treatment, Cognitive-Behavioral (ICD-10-PCS; principal; 2019-07-25)
DX: F11.20 Opioid dependence, uncomplicated (principal); F14.20 Cocaine dependence, uncomplicated; F19.282 Other psychoactive substance dependence with psychoactive substance-induced sleep disorder; F90.9 Attention-deficit hyperactivity disorder, unspecified type; R46.0 Very low level of personal hygiene; R63.4 Abnormal weight loss; B35.3 Tinea pedis; R11.0 Nausea; G47.00 Insomnia, unspecified; Z56.0 Unemployment, unspecified; Z59.0 Homelessness
CPT/HCPCS: 82962; J0735; Q0162